=== PATIENT | female | born 1970 | race Asian ===

== ENCOUNTER 2021-12-12 07:26 | Emergency (ER) | payer OTHER, SELFPAY ==
[2021-12-12] VITALS (16 sets, daily range): BP systolic 90–123; BP diastolic 40–66; PULSE 60–88; RESP 13–20; TEMP 36.6; O2SAT 97–100
--- NOTE | 2021-12-12 07:34 | ECG_ITS ---
Measurements Intervals [place] Rate: 70 P: 20 MA: 157 QRS: 37 QRSD: 84 T: 27 QT: 389 QTc: 420 Interpretive Statements SINUS RHYTHM EARLY PRECORDIAL R/S TRANSITION BASELINE ARTIFACT- V1 BORDERLINE ECG Electronically Signed On 12-12-2021 17:08:26 CDT by Robin Velázquez D.O.
--- NOTE | 2021-12-12 08:05 | ED.GENADULT ---
HPI - General Adult General Chief complaint: Unspecified Stated complaint: abnormal ekg Time Seen by Provider: 12/12/21 07:35 History of Present Illness HPI narrative: sent for abnormal portable ekg at [place] after outpt exam ? irreg hr says first ok then seen again got another and said t wave abnormality so sent in pt says no cp/sob/f/uri/neuro chagnes/guerrier/or issues doesn't feel palpitations or changes. Related Data Home Medications Medication Instructions Recorded Confirmed Saline Nasal 12/12/21 acetaminophen 325 mg tablet mg 12/12/21 aspirin 81 mg chewable tablet 12/12/21 cholecalciferol (vitamin D3) 1,250 cap 12/12/21 mcg (50,000 unit) capsule docusate sodium 100 mg capsule mg PO 12/12/21 (Colace) levalbuterol HCl 1.25 mg/3 mL ml inhalation 12/12/21 solution for nebulization levofloxacin 500 mg tablet 500 mg PO DAILY 12/12/21 levothyroxine 25 mcg capsule mcg PO 12/12/21 meclizine 25 mg tablet mg 12/12/21 metoprolol tartrate 50 mg tablet tablet 12/12/21 12/12/21 mirtazapine 15 mg tablet mg 12/12/21 Allergies Allergy/AdvReac Type Severity Reaction Status Date / Time No Known Allergies Allergy Verified 12/12/21 08:20 Review of Systems Constitutional: Comments: CONSTITUTIONAL: Denies fever, chills, or sweats. EYES: Denies visual changes, redness, or discharge. ENT: Denies rhinorrhea, congestion, sore throat, or otalgia. CARDIOVASCULAR: Denies chest pain, palpitations, or edema. RESPIRATORY: Denies cough or dyspnea. GASTROINTESTINAL: Denies abdominal pain, nausea, vomiting, or diarrhea. GENITOURINARY: Denies dysuria or hematuria. SKIN: Denies rash or itching. MUSCULOSKELETAL: Denies back pain, joint pain, or myalgia. NEUROLOGIC: Denies headache, numbness, or weakness. PSYCHIATRIC: Denies anxiety or depression. Exam Const: Other: APPEARANCE: Well appearing, no pain in distress, well-nourished. Head normocephalic atraumtaic. EYES: PERRLA/EOMI, conjunctivae very clear. NOSE: Normal no drainage EARS:TMS clear Barry Castanon, with good light reflex. THROAT: Pharynx clear, no exudate. NECK: Supple. No adenopathy, no masses. RESPIRATORY: Airway patent, repsirations nonlabored. Clear to auscultation bilaterally, no rales, rhonchi, wheezing. CARDIOVASCULAR: Regular rate and rhythm without murmurs rubs or gallops. ABDOMINAL: Soft, nontender, nondistended, no hepatosplenomegally MUSCULOSKELETAl: Moves all extremities. Strenght/ROM intact, No edema, No calf tenderness. NEURO: Alert. Cranial nerves II through XII intact. Good gait. Good coordination SKIN:: Warm, dry. Normal Color PSYCHIATRIC: Normal affect/mood, normal interaction with parents. Course Course Emergency Course: reviewing [facility] records tyroid issues, started levaquin for pnuemonia from cxr findings o 11/29/21 report of ekg t wave abnormalities otherwise nsr on metoprolol as well Reevaluation(s) Reevaluation #1: orthostatics ok will d/c home they can continue further outpt w/u pt in DNR Vital Signs Vital signs: Vital Signs Temperature 36.6 C 12/12/21 07:28 Pulse Rate 88 12/12/21 07:28 Respiratory Rate 16 12/12/21 07:28 Blood Pressure 123/40 L 12/12/21 07:28 Pulse Oximetry 100 12/12/21 07:28 Oxygen Delivery Nasal Cannula 12/12/21 07:28 Oxygen Flow Rate 4 12/12/21 07:28 Temperature 36.6 C 12/12/21 07:28 Pulse Rate 62 12/12/21 10:49 Respiratory Rate 18 12/12/21 10:49 Blood Pressure 93/48 L 12/12/21 10:49 Pulse Oximetry 97 12/12/21 10:49 Oxygen Delivery Nasal Cannula 12/12/21 07:28 Oxygen Flow Rate 4 12/12/21 07:28 Medical Decision Making Vital Signs Vital Signs: Vital Signs Temperature 36.6 C 12/12/21 07:28 Pulse Rate 88 12/12/21 07:28 Respiratory Rate 16 12/12/21 07:28 Blood Pressure 123/40 L 12/12/21 07:28 Pulse Oximetry 100 12/12/21 07:28 Oxygen Delivery Nasal Cannula 12/12/21 07:28 Oxygen Flow Rate 4 12/12/21 07:28 Temperature 36.6 C 12/12/21 07:28 Pulse R
== END 2021-12-12 12:06 ==
PROVIDERS: Emergency Provider Emergency Medicine; PCP Internal Medicine
DX: R94.31 Abnormal electrocardiogram [ECG] [EKG] (principal); E07.9 Disorder of thyroid, unspecified; Z87.01 Personal history of pneumonia (recurrent); Z79.82 Long term (current) use of aspirin
CPT/HCPCS: 93005; 99283